=== PATIENT | male | born 1985 | race Caucasian/White ===

== ENCOUNTER 2020-02-15 21:40 | Emergency (ER) | payer SELFPAY ==
[~2020-02-15] VITALS: Ht 182.9 cm; Wt 83.5 kg
[2020-02-15 22:11] VITALS: BP 123/70
[2020-02-15] MEDS ORDERED: BENADRYL25 MG ORAL ×3 (22:17→22:37)
[2020-02-15] MEDS ORDERED: PREDNISONE20 MG ORAL ×3 (22:17→22:37)
--- NOTE | 2020-02-15 22:18 | Emergency Room Report ---
History of Present Illness General Chief Complaint: Dyspnea/Respdistress Source: Patient Present Illness [facility] This 34-year-old male with no past medical history presents with chief complaint of shortness of breath and throat tightness. He had a flu shot around 2 PM today. He also did vaping with [employer]. An hour ago he felt his throat was tight and swollen. He also had difficulty breathing. He took 2 Benadryl and it helped is much better now. No fever chills but no nausea no vomiting. There is a first time getting the flu shot. He used the same vaping medication as before. No new medication of new food. He actually has symptoms before eating. Denies any other complaint. 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 COVID-19 Screening: Positive COVID-19 COVID-19 Testing Source: nasal Patient History Past Medical History: none, see triage record, old chart reviewed Past Surgical History: none Pertinent Family History: none Social History: Reports: smoking Immunizations: other Reviewed Nursing Documentation: PMH: Agreed; PSxH: Agreed Review of Systems Eye: Denies: eye pain, blurred vision ENT: Denies: ear pain, nose congestion, throat swelling Respiratory: Reports: shortness of breath; Denies: cough Cardiovascular: Denies: chest pain, palpitations Gastrointestinal: Denies: abdominal pain, diarrhea, nausea, vomiting Musculoskeletal: Denies: back pain, joint pain Skin: Denies: rash Neurological: Denies: headache, numbness Endocrine: Denies: increased thirst, increased urine Hematologic/Lymphatic: Denies: easy bruising All Other Systems: negative except mentioned in HPI Physical Exam Vital Signs Date Time Temp Pulse Resp B/P (MAP) Pulse Ox O2 Delivery O2 Flow Rate FiO2 02/15/20 22:00 98.8 68 16 123/70 (87) 94 Room Air Vitals normal Sp02 EP Interpretation: reviewed, normal General Appearance: well appearing, no apparent distress, alert Head: normocephalic, atraumatic Eyes: bilateral eye PERRL, bilateral eye EOMI ENT: hearing grossly normal, normal pharynx Neck: full range of motion, supple, no meningismus, other - No stridor Respiratory: chest non-tender, lungs clear, normal breath sounds Cardiovascular #1: regular rate, rhythm, no murmur Gastrointestinal: normal bowel sounds, non tender, no mass, no organomegaly, no bruit, non-distended Musculoskeletal: back normal, normal range of motion, gait/station normal Psychiatric: mood/affect normal Medical Decision Making Diagnostic Impression: Primary Impression: Dyspnea Qualified Codes: R06.00 - Dyspnea, unspecified Additional Impression: Allergic reaction Qualified Codes: T78.40XA - Allergy, unspecified, initial encounter ER Course Patient presents with dyspnea and symptoms consistent with allergic reaction. This may be secondary to vaping or the flu shot itself. No evidence of any stridor or respiratory distress. He is almost back to baseline. Chest x-ray is unremarkable. No evidence of any interstitial edema. Will discharge home. Chest X-Ray Diagnostic Results Chest X-Ray Diagnostic Results : Chest X-Ray Ordered: Yes # of Views/Limited/Complete: 1 View Indication: Shortness of Breath EP Interpretation: Yes Interpretation: no consolidation, no effusion, no pneumothorax, no acute cardiopulmonary disease Impression: No acute disease Electronically Signed by: Fei Jacobs MD Last Vital Signs Date Time Temp Pulse Resp B/P (MAP) Pulse Ox O2 Delivery O2 Flow Rate FiO2 02/15/20 22:11 68 16 Room Air 02/15/20 22:11 98.8 123/70 94 Status: improved Disposition: HOME, SELF-CARE Condition: Stable Scripts Prednisone* (PREDNISONE*) 20 Mg Tablet 40 MG ORAL DAILY, #8 TAB Prov: Fei Jacobs MD 02/15/20 Diphenhydramine Hcl* (BENADRYL*) 25 Mg Capsule 50 MG ORAL Q6H PRN for swelling, #30 CAP Prov: Fei Jacobs MD 02/15/20 Referrals: NOT CHOSEN IPA/,REFERRING (PCP) Patient Instructions: Shortness of Breath, [id number] Additional Instructions: Follow-up with your doctor in 7 days. Continue with Benadryl. Return if symptoms worsen. Fei Jacobs MD Feb 15, 2020 22:18
[2020-02-15 22:37] VITALS: BP 123/70
--- NOTE | 2020-02-15 23:11 | Diagnostic Imaging Report ---
EXAM: XR Chest, 1 View CLINICAL HISTORY: SOB TECHNIQUE: Frontal view of the chest. COMPARISON: No relevant prior studies available. FINDINGS: Lungs: Unremarkable. No consolidation. Pleural space: Unremarkable. No pneumothorax. Heart: Unremarkable. No cardiomegaly. Mediastinum: Unremarkable. Bones/joints: Unremarkable. IMPRESSION: Normal chest x-ray.
== END 2020-02-15 22:35 | disposition home or self-care (01) ==
LOC: EMR 21:59
DX: T78.40XA Allergy, unspecified, initial encounter (principal); R06.00 Dyspnea, unspecified; F17.200 Nicotine dependence, unspecified, uncomplicated; X58.XXXA Exposure to other specified factors, initial encounter; Y92.9 Unspecified place or not applicable
CPT/HCPCS: 71045; 99283; J7512